=== PATIENT | female | born 1940 | race Caucasian/White ===

== ENCOUNTER 2017-08-11 08:50 | Outpatient (CLI) | payer MEDICARE, OTHER ==
[~2017-08-11 08:50] MED LIST: ALBU8.5H2 IH; AMLO5TAB2 PO; ASPI-991 PO; ATOR20TA PO; BLOO-129 IN; CARV6.252 PO; DIPH25TA27 PO; DOCU-25 PO; DOXY100C2 PO; FAMO20TA8 PO; FLUT16SP BNOSTRILS; GABA600T2 PO; GUAI480S10 PO; HYDR-3658 PO; HYPR15DR9 EACHEYE; INSU100I14 SQ; INSU100V7 SQ; LACT10SO PO; LISI30TA4 PO; LOPE2TAB25 PO; LORA10TA7 PO; LORA1TAB PO; MECL-102 PO; MELO-264 PO; MORP15TA71 PO; ONDA4TAB5 PO; PARO40TA3 PO; PRIM50TA PO; PROC5TAB59 PO; SENN8.6T6 PO; ZOLP10TA6 PO
== END 2017-08-11 23:59 | disposition home health service (06) ==
LOC: WOU 08:50
PROVIDERS: ATTEND Surgery
DX: L89.154 Pressure ulcer of sacral region, stage 4 (principal); R26.2 Difficulty in walking, not elsewhere classified; Z72.0 Tobacco use; D64.9 Anemia, unspecified; K21.9 Gastro-esophageal reflux disease without esophagitis; Z99.3 Dependence on wheelchair; Z79.899 Other long term (current) drug therapy; E11.9 Type 2 diabetes mellitus without complications
CPT/HCPCS: 11043; A6402; A6407

== ENCOUNTER 2017-08-28 10:00 | Outpatient (CLI) | payer MEDICARE, OTHER ==
[~2017-08-28 10:00] MED LIST changes: -ALBU8.5H2 IH; +ALBU8.5H8 IH; +ASPI-1152 PO; -ASPI-991 PO; +DOCU-141 PO; -DOCU-25 PO; +MELO-107 PO; -MELO-264 PO; +MORP15TA60 PO; -MORP15TA71 PO; -PARO40TA3 PO; +PARO40TA4 PO; +SENN-167 PO; -SENN8.6T6 PO
== END 2017-08-28 23:59 | disposition home health service (06) ==
LOC: WOU 10:00
PROVIDERS: ATTEND Surgery
DX: L89.154 Pressure ulcer of sacral region, stage 4 (principal); R26.2 Difficulty in walking, not elsewhere classified; Z72.0 Tobacco use; E10.9 Type 1 diabetes mellitus without complications
CPT/HCPCS: 11043; A6402; A6407

== ENCOUNTER 2017-09-15 11:55 | Outpatient (CLI) | payer MEDICARE, OTHER | END 2017-09-15 23:59 | disposition home health service (06) | LOC: WOU 11:55 | PROVIDERS: ATTEND Surgery | DX: L89.154 Pressure ulcer of sacral region, stage 4 (principal); Z72.0 Tobacco use; R26.2 Difficulty in walking, not elsewhere classified; K21.9 Gastro-esophageal reflux disease without esophagitis; F32.9 Major depressive disorder, single episode, unspecified; D64.9 Anemia, unspecified; Z99.3 Dependence on wheelchair; E11.9 Type 2 diabetes mellitus without complications | CPT/HCPCS: 11043; A6402; A6407 ==

== ENCOUNTER → 2017-09-22 | Outpatient (CLI) | payer MEDICARE, OTHER | END | disposition home health service (06) | LOC: WOU 12:00 | PROVIDERS: ATTEND Surgery | DX: L89.154 Pressure ulcer of sacral region, stage 4 (principal); R26.2 Difficulty in walking, not elsewhere classified; Z72.0 Tobacco use; Z99.3 Dependence on wheelchair; K21.9 Gastro-esophageal reflux disease without esophagitis; F32.9 Major depressive disorder, single episode, unspecified; D64.9 Anemia, unspecified | CPT/HCPCS: 11043; A6402; A6407 ==

== ENCOUNTER 2017-10-09 13:28 | Outpatient (CLI) | payer MEDICARE, OTHER ==
[~2017-10-09 13:28] MED LIST changes: -HYDR-3658 PO; +HYDR-3980 PO
== END 2017-10-09 23:59 | disposition home health service (06) ==
LOC: WOU 13:28
PROVIDERS: ATTEND Surgery
DX: L89.154 Pressure ulcer of sacral region, stage 4 (principal); R26.2 Difficulty in walking, not elsewhere classified; Z72.0 Tobacco use; Z99.3 Dependence on wheelchair; K21.9 Gastro-esophageal reflux disease without esophagitis; F32.9 Major depressive disorder, single episode, unspecified; D64.9 Anemia, unspecified; E10.8 Type 1 diabetes mellitus with unspecified complications
CPT/HCPCS: 11043; A6402; A6407

== ENCOUNTER 2017-10-20 10:19 | Outpatient (CLI) | payer MEDICARE, OTHER | END 2017-10-20 23:59 | disposition home or self-care (01) | LOC: WOU 10:19 | PROVIDERS: ATTEND Surgery | DX: L89.154 Pressure ulcer of sacral region, stage 4 (principal); R26.2 Difficulty in walking, not elsewhere classified; Z72.0 Tobacco use; E10.9 Type 1 diabetes mellitus without complications; D64.9 Anemia, unspecified; K21.9 Gastro-esophageal reflux disease without esophagitis | CPT/HCPCS: 11043; A6402; A6407 ==

== ENCOUNTER 2017-10-24 14:10 | Inpatient (IN) | payer MEDICARE, OTHER ==
[~2017-10-24] VITALS: Ht 165.1 cm; Wt 68.0 kg
--- NOTE | 2017-10-24 14:24 | NUR ---
PT BIB RA WITH A C/O FLU LIKE SYMPTOMS. PT APPEARS SLIGHTLY LETHARGIC. PT IS ASKING FOR WATER. PT'S MOUTH APPEARS DRY AND PT IS CURRENTLY MOUTH BREATHING. PT'S O2 SAT IS 77% ON RA. PT PLACED ON 4L VIA NC AND O2 SAT IS 92%. PT IS ON THE MONITOR AND CONTINUOUS PULSE OX. ORAL TEMP IS 99.1F. PT HAS RT BKA. PT TAKES PERCOCET FOR PAIN AND REC'D ONE THIS MORNING AT HER FACILITY ( PER EMS). PT HAS RUSSO TO GRAVITY VESSEL SLAG WORKER. RESP EVEN AND UNLABORED. SKIN IS WARM AND DRY. PT IS AWAITING EVAL BY
--- NOTE | 2017-10-24 14:28 | NUR ---
DR. LALA IS AT THE BEDSIDE.
--- NOTE | 2017-10-24 14:30 | NUR ---
20G IV STARTED IN LT WRIST. INDWELLING BOYD REMOVED PER DR LALA. NEW BOYD INSERTED AND URINE SAMPLE OBTAINED. 16FR boyd catheter inserted per sterile protocal. Immediate output 25ML of urine, YELLOW, clarity= CLOUDY
--- NOTE | 2017-10-24 14:50 | NUR ---
EKG IN PROGRESS AT THE BEDSIDE.
--- NOTE | 2017-10-24 14:53 | NUR ---
CXR IN PROGRESS AT THE BEDSIDE.
[2017-10-24 14:58] LABS: BASOPHILS % (AUTO) 0.3 % (0.0-2.0); EOSINOPHILS % (AUTO) 0.5 % (0.0-6.0); HEMATOCRIT 28 % (33-45); HEMOGLOBIN 9.4 g/dL (11.5-14.8); LYMPHOCYTES # (AUTO) 1.7 /CMM (0.8-4.8); LYMPHOCYTES % (AUTO) 20.4 % (20.0-44.0); MEAN CORPUSCULAR HEMOGLOBIN 30 PG (26.0-33.0); MEAN CORPUSCULAR HGB CONC 34 g/dl (31.0-36.0); MEAN CORPUSCULAR VOLUME 90 fL (82-100); MONOCYTES # (AUTO) 0.6 /CMM (0.1-1.30); MONOCYTES % (AUTO) 7.6 % (2.0-12.0); NEUTROPHILS # (AUTO) 5.8 /CMM (1.8-8.9); NEUTROPHILS % (AUTO) 71.2 % (43.0-81.0); PLATELET COUNT (AUTO) 196 /CMM (150-450); RDW COEFFICIENT OF VARIATION 14.2 (11.5-15.0); RED BLOOD CELL COUNT(AUTO) 3.09 MIL/uL (4.0-5.2); WHITE BLOOD COUNT (AUTO) 8.1 K/uL (4.3-11.0)
[2017-10-24 15:00] LABS: APPEARANCE,URINE Turbid (CLEAR); BILIRUBIN,URINE Negative (NEGATIVE); BLOOD, URINE Trace-intact Ery/uL (NEGATIVE); COLOR,URINE Yellow (YELLOW); KETONES,URINE Negative (NEGATIVE); LEUKOCYTE ESTERASE ,URINE Moderate (NEGATIVE); NITRITE, URINE Positive (NEGATIVE); PROTEIN,URINE >=300 mg/dl (NEGATIVE); UGLUCOSE Negative (NEGATIVE); UROBILINOGEN,URINE 0.2 EU/dL (0.2)
[2017-10-24] MEDS ORDERED: IV NS 0.9% 1,000 ML BAG IV ONE (15:00)
[2017-10-24 15:08] LABS: CALCIUM, SERUM 8.8 mg/dL (8.5-10.1); CARBON DIOXIDE 25 mmol/L (21-32); CHLORIDE 110 mmol/L (98-107); CREATININE 1.5 mg/dL (0.6-1.3); GLUCOSE 109 mg/dL (74-106); POTASSIUM 5.5 mmol/L (3.5-5.1); SODIUM SERUM 141 mmol/L (136-145); UREA NITROGEN, BLOOD 33 mg/dL (7-18)
[2017-10-24 15:09] LABS: BACTERIA,URINE Few /HPF (None Seen); SQUAMOUS EPITHELIAL CELL,UR Few /HPF (None Seen); WBC,URINE 80-100 /HPF (0-3)
[2017-10-24 15:12] LABS: INR 0.92 (0.85-1.15)
[2017-10-24 15:14] LABS: ALANINE AMINOTRANSFERASE 12 U/L (12-78); ALBUMIN 2.7 g/dL (3.4-5.0); ALKALINE PHOSPHATASE 86 U/L (46-116); ASPARTATE AMINOTRANSFERASE 14 U/L (15-37); BILIRUBIN,DIRECT 0.1 mg/dL (0.0-0.2); BILIRUBIN,TOTAL 0.2 mg/dL (0.2-1.0); TOTAL PROTEIN, SERUM 6.6 g/dL (6.4-8.2)
[2017-10-24 15:16] LABS: TROPONIN I < 0.017 ng/mL (0.00-0.056)
--- NOTE | 2017-10-24 15:20 | NUR ---
PT LEFT FOR CT VIA RNEY
--- NOTE | 2017-10-24 15:50 | NUR ---
PT RETURNED FROM CT.
--- NOTE | 2017-10-24 15:58 | NUR ---
SPEAKING TO PT'S SON RE: PT. PER SON, PT HAS BEEN OVER MEDICATED IN THE PAST AND HAS UTI. DHARA MORENO [phone]. PLEASE CALL WITH UPDATES.
[2017-10-24] MEDS ORDERED: PIPERACILLIN /TAZOBACTAM 2.25 G in IV D5W 50 ML IV ONE (16:00)
--- NOTE | 2017-10-24 16:18 | NUR ---
CALLED [employer] B AND B GANG WORKER WAS PAGED.
[2017-10-24] MEDS ORDERED: SODIUM POLYSTYRENE SULFONATE 15 G/60 ML BOTTLE PO ONE (16:30)
[2017-10-24 16:32] LABS: ABG BASE EXCESS -6.3 mmol/L; ABG OXYGEN SATURATION 95.3 % (92.0-98.5); ABG PCO2 47.7 mmHg (35.0-45.0); ABG PH 7.253 (7.350-7.450); ABG PO2 95.9 mmHg (75.0-100.0); AaDO2 105.5 mmHg; MetHb 0.8 % (0.0-1.5); O2Hb 93.6 % (94.0-97.0); SITE, ABG Left Radial; VENT MODE, BG 4 LNC
--- NOTE | 2017-10-24 17:18 | NUR ---
DR. LESTER IS AT THE BEDSIDE EVALUATING THE PT.
[2017-10-24] MEDS ORDERED: LACT10SO PO (17:19)
[2017-10-24] MEDS ORDERED: NA P133E RC (17:19)
[2017-10-24] MEDS ORDERED: BISA10SU8 RC (17:19)
[2017-10-24] MEDS ORDERED: HYDR-4075 PO (17:19)
[2017-10-24] MEDS ORDERED: FOLI0.8T2 PO (17:19)
[2017-10-24] MEDS ORDERED: DULO60CA45 PO (17:19)
[2017-10-24] MEDS ORDERED: OXYC-128 PO (17:19)
[2017-10-24] MEDS ORDERED: ACET-868 PO (17:19)
[2017-10-24] MEDS ORDERED: MAGN400O6 PO (17:19)
[2017-10-24] MEDS ORDERED: AMIN30LI4 PO (17:19)
[2017-10-24] MEDS ORDERED: CLON0.3P TD (17:19)
[2017-10-24] MEDS ORDERED: DOCU250C14 PO (17:19)
[2017-10-24] MEDS ORDERED: OXYC-133 PO ×2 (17:19)
[2017-10-24] MEDS ORDERED: PREG300C PO (17:19)
[2017-10-24] MEDS ORDERED: METF500T4 PO (17:25)
[2017-10-24] MEDS ORDERED: ASCO500T9 PO (17:25)
[2017-10-24] MEDS ORDERED: LISI-603 PO (17:25)
[2017-10-24] MEDS ORDERED: SITA100T PO (17:25)
[2017-10-24] MEDS ORDERED: TERA2CAP4 PO (17:25)
[2017-10-24] MEDS ORDERED: CHLO25TA2 PO (17:25)
[2017-10-24] MEDS ORDERED: IV NS 0.9% 1,000 ML IV PRN ×2 (17:27→23:02)
[2017-10-24] MEDS ORDERED: ACETAMINOPHEN 325 MG TABLET PO PRN (17:30)
[2017-10-24] MEDS ORDERED: ENOXAPARIN SODIUM 40 MG/0.4 ML DISP.SYRIN SQ SCH (17:30)
[2017-10-24] MEDS ORDERED: MAGNESIUM HYDROXIDE 30 ML UDC PO PRN (17:30)
[2017-10-24] MEDS ORDERED: HYDROCODONE/APAP 5/325MG 1 EACH TABLET PO PRN (17:30)
[2017-10-24] MEDS ORDERED: MAG HYDROX/AL HYDROX/SIMETH 30 ML UDC PO PRN (17:30)
[2017-10-24] MEDS ORDERED: Z GUARD REMEDY 2 OZ OINT TP PRN (17:30)
--- NOTE | 2017-10-24 17:37 | NUR ---
Abby medeiros in ED - 10/24/17 at 1738 by TRINI PT WAKES UP AND DOESN'T WANT TO DRINK THE KEYEXELATE. CHARGE NURSE IS AWARE THAT WE WERE UNABLE TO GIVE THE PT THE MEDICATION.
--- NOTE | 2017-10-24 17:38 | NUR ---
PT WAKES UP AND DOESN'T WANT TO DRINK THE KEYEXELATE. CHARGE NURSE IS AWARE THAT WE WERE UNABLE TO GIVE THE PT THE MEDICATION.
--- NOTE | 2017-10-24 17:38 | NUR ---
CALLING REPORT TO TELE NURSE.
[2017-10-24] MEDS ORDERED: PIPERACILLIN /TAZOBACTAM 4.5 G in IV D5W 50 ML IV SCH (18:00)
--- NOTE | 2017-10-24 18:10 | NUR ---
PT APPEARS TO BE MORE ALERT. PT IS INTERMITTENTLY COUGHING. GREEN SPUTUM NOTED. PT WANTED TO TRY TO DRINK THE KAYEXELATE, BUT WAS ONLY ABLE TO DRINK APPROX 30 ML. HAD TO WASTE THE REST.
--- NOTE | 2017-10-24 19:00 | NUR ---
RN NOTES RECEIVE PT IN BED A/O X1, PT ON 5L NC 02 SAT 97% NO S/S OF DISTRESS, STABLE, SAFETY MEASURES IN PLACE, CALL LIGHT WITHIN REACH, WILL CONTINUE TO MONITOR.
--- NOTE | 2017-10-24 19:10 | NUR ---
DECREASE 02 TO 3LPM SP02 95%
[2017-10-24 20:00] VITALS: BP 143/49
[2017-10-24] MEDS: ENOXAPARIN SODIUM 30 MG/0.3 ML DISP.SYRIN SQ SCH (20:21)
--- NOTE | 2017-10-24 22:00 | NUR ---
HEAD TO TOE ASSESSMENT IS DONE
--- NOTE | 2017-10-24 23:03 | NUR ---
CARINA PAZ NP HOSPITALIST SPOKE TO HER RELAYED FAMILY MEMBER CONCERNED WITH IVF NS @ 75 CC/HR. HX OF CHF PT TO BE MORE ALERT DRINKING A LITTLE BUT DOESNT HAVE APPETITE TO EAT PER JACKSON PEARCE NP, DECREASE IVF NS TO 50 CC/HR NOTED VERIFIED AND READ BACK NOTED AND CARRIED OUT Addendum: 10/25/17 at 0631 by SEMAJ BLANKENSHIP RN ADDENDUM: DRINKING LITTLE EARLIER IN THE E.R SERVICES
[2017-10-24] MEDS: PIPERACILLIN /TAZOBACTAM 2.25 G in IV D5W 50 ML IV SCH (23:40)
[2017-10-25] VITALS: BP 155/69
[2017-10-25] MEDS ORDERED: PIPERACILLIN /TAZOBACTAM 3.375 G in IV D5W 50 ML IV SCH ×2
[2017-10-25 04:00] VITALS: BP 145/69
[2017-10-25] MEDS: PIPERACILLIN /TAZOBACTAM 2.25 G in IV D5W 50 ML IV SCH ×3 (05:27→18:06)
--- NOTE | 2017-10-25 06:33 | NUR ---
MS RN CLOSING NOTES PT COMFORTABLY ASLEEP IN BED AND EASILY AWAKEN, NOT IN RESPIRATORY DISTRESS, ON 2LPM VIA NC 02 SAT 97% SON AT BEDSIDE, HEAD OF BED ELEVATED AT ALL TIMES FOR BETTER LUNG EXPANSION AND GOOD CIRCULATION. STABLE, NOT APPEAR IN DISTRESS. NEEDS ATTENDED AND ANTICIPATED. KEPT CLEAN AND DRY AND COMFORTABLE. NURSING CARE RENDERED. ASSISTED REPOSITION EVERY 2 HOURS. GOOD SKIN CARE PROVIDED. ON LOW BED TO ENSURE SAFETY, CALL LIGHT WITHIN REACH, WILL ENDORSE TO THE NEXT SHIFT CONTINUE PLAN OF CARE.
--- NOTE | 2017-10-25 06:53 | NUR ---
ON TELE MTR SR 71'S
--- NOTE | 2017-10-25 07:10 | NUR ---
RN NOTES PT IS LAYING DOWN IN BED, SLEEPING COMFORTABLY WITH SON AT BEDSIDE. PT ON RA, RESPIRATIONS ARE EVEN AND UNLABORED. IV ON LFA INTACT AND RUNNING 50ML/HR. SAFETY MEASURES ARE IN PLACE, CALL LIGHT IS IN REACH. WILL CONTINUE TO MONITOR.
--- NOTE | 2017-10-25 07:20 | NUR ---
RN NOTES PT IS SITTING UP IN BED, RESTING COMFORTABLY. PT ON RA, RESPIRATIONS ARE EVEN AND UNLABORED. IV ON RFA, LAC, AND R WRIST INTACT. IV RUNNING NS @ 125ML/HR. RUSSO CATHETER IS INTACT AND DRAINING. SAFETY MEASURES ARE IN PLACE, CALL LIGHT IS IN REACH. WILL CONTINUE TO MONITOR. Addendum: 10/25/17 at 1842 by CAMILO GILES RN DISREGARD NOTE. WRONG PATIENT
[2017-10-25 07:32] LABS: BASOPHILS % (AUTO) 0.3 % (0.0-2.0); EOSINOPHILS # (AUTO) 0.1 /CMM (0.0-0.7); EOSINOPHILS % (AUTO) 1.7 % (0.0-6.0); HEMATOCRIT 25 % (33-45); HEMOGLOBIN 8.5 g/dL (11.5-14.8); LYMPHOCYTES # (AUTO) 1.6 /CMM (0.8-4.8); LYMPHOCYTES % (AUTO) 22.7 % (20.0-44.0); MEAN CORPUSCULAR HEMOGLOBIN 31 PG (26.0-33.0); MEAN CORPUSCULAR HGB CONC 34 g/dl (31.0-36.0); MEAN CORPUSCULAR VOLUME 91 fL (82-100); MONOCYTES # (AUTO) 0.6 /CMM (0.1-1.30); MONOCYTES % (AUTO) 8.7 % (2.0-12.0); NEUTROPHILS # (AUTO) 4.7 /CMM (1.8-8.9); NEUTROPHILS % (AUTO) 66.6 % (43.0-81.0); PLATELET COUNT (AUTO) 158 /CMM (150-450); RDW COEFFICIENT OF VARIATION 14.9 (11.5-15.0); RED BLOOD CELL COUNT(AUTO) 2.75 MIL/uL (4.0-5.2); WHITE BLOOD COUNT (AUTO) 7.1 K/uL (4.3-11.0)
[2017-10-25 07:41] LABS: CHOLESTEROL 102 mg/dL (<200); HDL CHOLESTEROL 31 mg/dL (40-60); LDL 50 mg/dL (0-99); THYROID STIMULATING HORMONE 0.331 uIU/mL (0.358-3.74); TRIGLYCERIDES 139 mg/dL (30-150)
[2017-10-25 07:54] LABS: ALANINE AMINOTRANSFERASE 10 U/L (12-78); ALBUMIN 2.2 g/dL (3.4-5.0); ALKALINE PHOSPHATASE 66 U/L (46-116); ASPARTATE AMINOTRANSFERASE 14 U/L (15-37); BILIRUBIN,TOTAL 0.3 mg/dL (0.2-1.0); CALCIUM, SERUM 7.8 mg/dL (8.5-10.1); CARBON DIOXIDE 20 mmol/L (21-32); CHLORIDE 113 mmol/L (98-107); CREATININE 1.2 mg/dL (0.6-1.3); GLUCOSE 89 mg/dL (74-106); MAGNESIUM 1.5 mg/dL (1.8-2.4); POTASSIUM 4.8 mmol/L (3.5-5.1); SODIUM SERUM 148 mmol/L (136-145); TOTAL PROTEIN, SERUM 6.1 g/dL (6.4-8.2); UREA NITROGEN, BLOOD 28 mg/dL (7-18)
[2017-10-25 08:00] VITALS: BP 172/67
[2017-10-25] MEDS ORDERED: MAGNESIUM HYDROXIDE 30 ML UDC PO PRN (08:30)
[2017-10-25] MEDS ORDERED: BISACODYL SUPP (10 MG) 10 MG/SUPP.RECT SUPP.RECT RC PRN (08:30)
[2017-10-25] MEDS ORDERED: ACETAMINOPHEN 325 MG TABLET PO PRN (08:30)
[2017-10-25] MEDS ORDERED: NA PHOS,M-B/NA PHOS,DI-BA 1 EA ENEMA RC PRN (08:30)
[2017-10-25] MEDS ORDERED: Medication Not On Formulary EA (Sitagliptin Phosphate (Januvia) 100 MG) PO SCH (09:00)
[2017-10-25] MEDS ORDERED: AMLODIPINE BESYLATE 5 MG TABLET PO SCH (09:00)
[2017-10-25] MEDS: FUROSEMIDE 40 MG/4 ML VIAL IV SCH ×3 (09:12→16:04)
[2017-10-25] MEDS: Magnesium 1GM/D5W 100ML PREMIX 100 ML IV SCH ×2 (09:12→10:36)
[2017-10-25] MEDS: PROSOURCE / PROSTAT (PYXIS) 30 ML UDC PO SCH (09:12)
[2017-10-25] MEDS: LISINOPRIL (20MG) 20 MG TABLET PO SCH ×2 (09:13→16:04)
[2017-10-25] MEDS: DULOXETINE HCL 30 MG CAPSULE.DR PO SCH (09:13)
[2017-10-25] MEDS: DOCUSATE SODIUM 250 MG CAPSULE PO SCH ×2 (09:13→16:04)
[2017-10-25] MEDS: CARVEDILOL 6.25 MG TABLET PO SCH ×2 (09:13→16:05)
[2017-10-25] MEDS: VIT B CMPLX 3/FA/VIT C/BIOTIN 1 TAB TABLET PO SCH (09:14)
[2017-10-25] MEDS: SENNOSIDES 8.6 MG TABLET PO SCH ×2 (09:14→16:04)
[2017-10-25] MEDS: hydrALAZINE HCL 10 MG TABLET PO SCH ×2 (09:14→16:05)
[2017-10-25] MEDS: ASCORBIC ACID 500 MG TABLET PO SCH (09:14)
[2017-10-25] MEDS: METFORMIN 500 MG TABLET PO SCH ×2 (09:15→16:04)
[2017-10-25] MEDS ORDERED: ONDANSETRON 4 MG TAB.RAPDIS PO PRN (09:30)
[2017-10-25] MEDS ORDERED: LACTULOSE 10 G/15 ML UDC (PYXIS) PO PRN (09:30)
[2017-10-25] MEDS: CHLORTHALIDONE 25 MG PO SCH (09:30)
[2017-10-25] MEDS: PREGABALIN 100 MG CAPSULE PO SCH ×2 (09:32→16:04)
[2017-10-25 16:00] VITALS: BP 168/75
--- NOTE | 2017-10-25 18:42 | NUR ---
RN NOTES PT IS SITTING UP IN BED, RESTING COMFORTABLY. PT ON RA, RESPIRATIONS ARE EVEN AND UNLABORED. IV ON LFA INTACT AND RUNNING NS @ 50ML/HR. ALL MEDS GIVEN ORDERED AND PT NEEDS MET. NO SIGNS OF DISTRESS NOTED. SAFETY MEASURES ARE IN PLACE, CALL LIGHT IS IN REACH. WILL ENDORSE TO TAXATION ECONOMIST RN FOR CONTINUITY OF CARE.
--- NOTE | 2017-10-25 19:16 | NUR ---
RN NOTES RECEIVE PT IN BED A/O X 2, NO S/S OF DISTRESS, STABLE, SAFETY MEASURES IN PLACE, CALL LIGHT WITHIN REACH, WILL CONTINUE TO MONITOR.
[2017-10-25 20:00] VITALS: BP 145/67
[2017-10-25] MEDS: TERAZOSIN HCL 1 MG CAPSULE PO SCH (21:54)
[2017-10-25] MEDS: ATORVASTATIN 10 MG TABLET PO SCH (21:54)
[2017-10-25] MEDS: ENOXAPARIN SODIUM 30 MG/0.3 ML DISP.SYRIN SQ SCH (21:56)
[2017-10-25] MEDS ORDERED: ZOLPIDEM TARTRATE 10 MG TABLET PO SCH (22:00)
[2017-10-26] VITALS (7 sets, daily range): BP systolic 139–170; BP diastolic 62–75
[2017-10-26] MEDS: PIPERACILLIN /TAZOBACTAM 2.25 G in IV D5W 50 ML IV SCH ×4 (00:09→17:02)
[2017-10-26] MEDS: oxyCODONE/APAP (5/325 MG) 1 UDTAB TABLET PO PRN ×2 (03:24→20:10)
--- NOTE | 2017-10-26 06:24 | NUR ---
MS RN CLOSING NOTES PT ASLEEP IN BED AND EASILY AWAKEN, PT APPEARS ALERT A/O X 3, HEAD OF BED ELEVATED AT ALL TIMES FOR BETTER LUNG EXPANSION AND GOOD CIRCULATION. NOT IN RESPIRATORY DISTRESS, ON 2LPM VIA NC 02 SAT AT 95% STABLE, NURSING CARE RENDERED. NEEDS ATTENDED AND ANTICIPATED. KEPT CLEAN AND DRY AND COMFORTABLE. NO C/O OF PAIN. ASSISTED REPOSITION PT EVERY 2 HOURS FOR SKIN MANAGEMENT. GOOD SKIN CARE PROVIDED. ON LOW BED TO ENSURE SAFETY, CALL LIGHT WITHIN REACH, WILL ENDORSE TO THE NEXT SHIFT CONTINUE PLAN OF CARE.
[2017-10-26 07:20] LABS: BASOPHILS % (AUTO) 0.5 % (0.0-2.0); EOSINOPHILS # (AUTO) 0.1 /CMM (0.0-0.7); HEMATOCRIT 24 % (33-45); HEMOGLOBIN 8.4 g/dL (11.5-14.8); LYMPHOCYTES # (AUTO) 1.9 /CMM (0.8-4.8); LYMPHOCYTES % (AUTO) 27.9 % (20.0-44.0); MEAN CORPUSCULAR HEMOGLOBIN 31 PG (26.0-33.0); MEAN CORPUSCULAR HGB CONC 34 g/dl (31.0-36.0); MEAN CORPUSCULAR VOLUME 90 fL (82-100); MONOCYTES # (AUTO) 0.8 /CMM (0.1-1.30); MONOCYTES % (AUTO) 11.1 % (2.0-12.0); NEUTROPHILS % (AUTO) 58.5 % (43.0-81.0); PLATELET COUNT (AUTO) 164 /CMM (150-450); RDW COEFFICIENT OF VARIATION 14.6 (11.5-15.0); WHITE BLOOD COUNT (AUTO) 6.8 K/uL (4.3-11.0)
--- NOTE | 2017-10-26 07:20 | NUR ---
RN NOTES PT IS LAYING DOWN IN BED, SLEEPING COMFORTABLY. PT ON 2L O2 FOR COMFORT, RESPIRATIONS ARE EVEN AND UNLABORED. IV ON LFA INTACT AND SL. RUSSO CATHETER IS INTACT AND DRAINING. SAFETY MEASURES ARE IN PLACE, CALL LIGHT IS IN REACH. WILL CONTINUE TO MONITOR.
[2017-10-26 07:25] LABS: ALANINE AMINOTRANSFERASE 14 U/L (12-78); ALBUMIN 2.4 g/dL (3.4-5.0); ALKALINE PHOSPHATASE 68 U/L (46-116); ASPARTATE AMINOTRANSFERASE 15 U/L (15-37); BILIRUBIN,TOTAL 0.4 mg/dL (0.2-1.0); CALCIUM, SERUM 8.4 mg/dL (8.5-10.1); CARBON DIOXIDE 23 mmol/L (21-32); CHLORIDE 107 mmol/L (98-107); CREATININE 1.1 mg/dL (0.6-1.3); GLUCOSE 132 mg/dL (74-106); MAGNESIUM 1.6 mg/dL (1.8-2.4); PHOSPHORUS 3.1 mg/dL (2.5-4.9); POTASSIUM 3.7 mmol/L (3.5-5.1); SODIUM SERUM 141 mmol/L (136-145); TOTAL PROTEIN, SERUM 6.4 g/dL (6.4-8.2); UREA NITROGEN, BLOOD 24 mg/dL (7-18)
[2017-10-26] MEDS: ASCORBIC ACID 500 MG TABLET PO SCH (08:15)
[2017-10-26] MEDS: DULOXETINE HCL 30 MG CAPSULE.DR PO SCH (08:15)
[2017-10-26] MEDS: METFORMIN 500 MG TABLET PO SCH ×2 (08:15→16:36)
[2017-10-26] MEDS: PREGABALIN 100 MG CAPSULE PO SCH ×2 (08:15→16:35)
[2017-10-26] MEDS: LINAGLIPTIN 5 MG TABLET PO SCH (08:15)
[2017-10-26] MEDS: CARVEDILOL 6.25 MG TABLET PO SCH ×2 (08:15→16:35)
[2017-10-26] MEDS: DOCUSATE SODIUM 250 MG CAPSULE PO SCH ×2 (08:15→16:35)
[2017-10-26] MEDS: hydrALAZINE HCL 10 MG TABLET PO SCH ×2 (08:15→16:35)
[2017-10-26] MEDS: VIT B CMPLX 3/FA/VIT C/BIOTIN 1 TAB TABLET PO SCH (08:16)
[2017-10-26] MEDS: LISINOPRIL (20MG) 20 MG TABLET PO SCH ×2 (08:16→16:35)
[2017-10-26] MEDS: PROSOURCE / PROSTAT (PYXIS) 30 ML UDC PO SCH (08:16)
[2017-10-26] MEDS: AMLODIPINE BESYLATE 5 MG TABLET PO SCH (08:16)
[2017-10-26] MEDS: CHLORTHALIDONE 25 MG PO SCH (08:16)
[2017-10-26] MEDS: SENNOSIDES 8.6 MG TABLET PO SCH ×2 (08:23→16:36)
[2017-10-26] MEDS: Magnesium 1GM/D5W 100ML PREMIX 100 ML IV SCH ×2 (08:25→09:21)
[2017-10-26] MEDS ORDERED: CLONIDINE HCL 0.3 MG/24H PTWK 1 EA PATCH TD SCH (09:00)
[2017-10-26] MEDS ORDERED: SILVER NITRATE APPLICATOR 1 EA BOX TP ONE (12:00)
[2017-10-26] MEDS ORDERED: LIDOCAINE 1%-EPI 1:100,000 20 ML VIAL TP ONE (12:00)
--- NOTE | 2017-10-26 13:00 | NUR ---
RN NOTES CT OF PELVIS UNABLE TO BE DONE TODAY BECAUSE PT TAKES GLUCOPHAGE. WILL ENDORSE TO NEXT SHIFT TO HOLD METFORMIN AND TRADJENTA FOR 48 HOURS.
[2017-10-26 13:15] LABS: OCCULT BLOOD STOOL NEGATIVE (NEGATIVE)
[2017-10-26] MEDS: SOD FERRIC GLUC 125 MG in IV NS 0.9% 100 ML IV SCH (14:01)
[2017-10-26] MEDS ORDERED: POLYVINYL ALCOHOL 15 ML BOTTLE EACHEYE PRN (17:00)
--- NOTE | 2017-10-26 18:34 | NUR ---
RN NOTES PT IS RESTING IN BED WITH HOB ELEVATED, AWAKE AND ALERT. PT ON RA, RESPIRATIONS ARE EVEN AND UNLABORED. IV ON LFA INTACT AND PATENT. ALL MEDS WERE GIVEN ORDERED AND PT NEEDS MET. RUSSO CATHETER IS INTACT AND DRAINING, 900 ML OUTPUT. SAFETY MEASURES ARE IN PLACE, CALL LIGHT IS IN REACH. WILL ENDORSE TO CORRECTIONAL CASE RECORDS SUPERVISOR RN FOR CONTINUITY OF CARE.
--- NOTE | 2017-10-26 19:30 | NUR ---
RN NOTES PT IS RESTING IN BED WITH HOB ELEVATED, AWAKE AND ALERT. PT ON RA, RESPIRATIONS ARE EVEN AND UNLABORED. IV ON LFA INTACT AND PATENT. ALL MEDS WERE GIVEN ORDERED AND PT NEEDS MET. RUSSO CATHETER IS INTACT AND DRAINING, SAFETY MEASURES ARE IN PLACE, CALL LIGHT IS IN REACH. WILL CONTINUE TO MONITOR.
[2017-10-26] MEDS: ENOXAPARIN SODIUM 30 MG/0.3 ML DISP.SYRIN SQ SCH (20:11)
[2017-10-26] MEDS: ATORVASTATIN 10 MG TABLET PO SCH (21:30)
[2017-10-26] MEDS: TERAZOSIN HCL 1 MG CAPSULE PO SCH (21:31)
[2017-10-26] MEDS: ZOLPIDEM TARTRATE 5 MG TABLET PO PRN (21:34)
[2017-10-27] MEDS ORDERED: hydrALAZINE HCL IV 20 MG VIAL IV PRN (00:30)
[2017-10-27] MEDS: PIPERACILLIN /TAZOBACTAM 2.25 G in IV D5W 50 ML IV SCH ×4 (00:42→18:49)
--- NOTE | 2017-10-27 06:58 | NUR ---
ms rn note All needs met and attended to. Will endorse to day shift for gianluca.
--- NOTE | 2017-10-27 07:15 | NUR ---
MS RN OPENING NOTE. PT RECEIVED A&0X2-3. PT WITH O2 VIA NC AT 2LPM, DENIES SOB. PT REPORTS MODERATE CHRONIC PAIN TO R KNEE AND ANKLE. PT WITH L FA IVC G#20 INTACT AND OPERATIONAL WITH NS TKO. BED IN LOWEST LOCKED POSITION WITH HANDRAILSX3 AND CALL CARTER WITHIN REACH. PT BRIEFED ON TODAY'S POC AND IS WITHOUT CONCERN OR COMPLAINT AT THIS TIME.
[2017-10-27 08:00] VITALS: BP 116/62
[2017-10-27] MEDS: DOCUSATE SODIUM 250 MG CAPSULE PO SCH ×2 (09:00→17:00)
[2017-10-27] MEDS: SENNOSIDES 8.6 MG TABLET PO SCH ×2 (09:00→17:00)
[2017-10-27] MEDS: CHLORTHALIDONE 25 MG PO SCH (09:00)
[2017-10-27] MEDS: LINAGLIPTIN 5 MG TABLET PO SCH (09:29)
[2017-10-27] MEDS: PREGABALIN 100 MG CAPSULE PO SCH ×2 (09:29→17:07)
[2017-10-27] MEDS: VIT B CMPLX 3/FA/VIT C/BIOTIN 1 TAB TABLET PO SCH (09:29)
[2017-10-27] MEDS: AMLODIPINE BESYLATE 5 MG TABLET PO SCH (09:29)
[2017-10-27] MEDS: METFORMIN 500 MG TABLET PO SCH ×2 (09:29→17:07)
[2017-10-27] MEDS: DULOXETINE HCL 30 MG CAPSULE.DR PO SCH (09:30)
[2017-10-27] MEDS: CARVEDILOL 6.25 MG TABLET PO SCH ×2 (09:30→17:08)
[2017-10-27] MEDS: hydrALAZINE HCL 10 MG TABLET PO SCH ×2 (09:30→17:00)
[2017-10-27] MEDS: ASCORBIC ACID 500 MG TABLET PO SCH (09:31)
[2017-10-27] MEDS: LISINOPRIL (20MG) 20 MG TABLET PO SCH ×2 (09:31→17:07)
[2017-10-27] MEDS: PROSOURCE / PROSTAT (PYXIS) 30 ML UDC PO SCH (09:32)
[2017-10-27] MEDS ORDERED: FUROSEMIDE 40 MG/4 ML VIAL IV ONE (11:00)
[2017-10-27] MEDS ORDERED: Magnesium 1GM/D5W 100ML PREMIX 1 G in PREMIX 1 EA IV SCH (11:00)
--- NOTE | 2017-10-27 11:55 | NUR ---
WOUND CARE CONSULT: PT FOLLOWED BY PLASTIC SURGICAL TEAM FOR WOUND/SKIN ISSUES. DEFER TO SURGICAL TEAM FOR WOUND TREATMENT PLAN. PT ON FIRST STEP MATTRESS. ALL SKIN PROTECTION MEASURES IN PLACE AND DISCUSSED WITH NURSING STAFF. MD IN AGREEMENT WITH PLAN OF CARE.
[2017-10-27] MEDS: Magnesium 1GM/D5W 100ML PREMIX 100 ML IV SCH ×2 (12:40→17:06)
[2017-10-27] MEDS: ONDANSETRON HCL/PF 4 MG/2 ML VIAL IVP PRN (12:41)
[2017-10-27] MEDS: oxyCODONE/APAP (5/325 MG) 1 UDTAB TABLET PO PRN ×2 (13:13→20:35)
[2017-10-27] MEDS: SOD FERRIC GLUC 125 MG in IV NS 0.9% 100 ML IV SCH (14:54)
[2017-10-27 16:00] VITALS: BP 137/51
--- NOTE | 2017-10-27 19:30 | NUR ---
RN CLOSING NOTES PT COMFORTABLE, TOLERATING ROOM AIR WITH INTERMITTENT O2 VIA NC, PT DENIES PAIN. RUSSO AND IVC ARE INTACT AND OPERATIONAL. ALL DAY NURSE DUTIES ATTENDED TO AND PT IS WITHOUT CONCERN OR COMPLAINT.
--- NOTE | 2017-10-27 19:35 | NUR ---
MS RN OPENING NOTES RECEIVED PT IN BED ALERT, AWAKE, VERBALLY RESPONSIVE, ON O2 VIA N/C AT 2L/MIN, NO RESPIRATORY DISTRESS NOTED. DENIES ANY PAIN OR DISCOMFORT AT THIS TIME. IV SITE RFA, INTACT, PATENT. CALL LIGHT WITHIN REACH, BED LOCKED IN LOWEST POSITION.KEPT CLEAN AND COMFORTABLE, ATTENDED ALL NEEDS. WILL CONTINUE TO MONITOR ACCORDINGLY.
[2017-10-27 20:00] VITALS: BP 135/50
[2017-10-27 20:30] VITALS: BP 109/77
[2017-10-27] MEDS: ENOXAPARIN SODIUM 30 MG/0.3 ML DISP.SYRIN SQ SCH (20:38)
[2017-10-27] MEDS: ATORVASTATIN 10 MG TABLET PO SCH (21:35)
[2017-10-27] MEDS: TERAZOSIN HCL 1 MG CAPSULE PO SCH (21:35)
[2017-10-27 22:00] VITALS: BP 126/60
[2017-10-28] MEDS: PIPERACILLIN /TAZOBACTAM 2.25 G in IV D5W 50 ML IV SCH ×5 (00:01→23:55)
--- NOTE | 2017-10-28 06:33 | NUR ---
MS RN CLOSING NOTES PT IN BED RESTING COMFORTABLY, ON ROOM AIR, RESPIRATIONS EVEN, UNLABORED, NO APPARENT DISTRESS NOTED. IV SITE RFA INTACT, PATENT.CALL LIGHT WITHIN REACH. ATTENDED ALL NEEDS. BED LOCKED IN LOWEST POSITION. WILL CONTINUE TO MONITOR ACCORDINGLY.
--- NOTE | 2017-10-28 07:11 | NUR ---
MS RN OPENING NOTES RECEIVED PT FROM NIGHTSHIFT NURSE IN STABLE CONDITION. PT IS A/O X2. NO SOB OR SIGNS OF DISTRESS NOTED. BREATHING IS EVEN AND UNLABORED. PT IS SATING AT 90%, BUT IS REFUSING SUPPLEMENTAL O2. PER PT "LEAVE ME ALONE JUST LET ME SLEEP, I'M FINE." WILL CONTINUE TO ENCOURAGE SUPPLEMENTAL O2. IV NOTED TO BE PATENT AND INTACT. NO REDNESS OR SIGNS OF INFILTRATION NOTED. BED IN LOW LOCKED POSITION, SIDE RAILS UP X3, CALL LIGHT WITHIN REACH, BED ALARM ON. WILL CONTINUE TO MONITOR
[2017-10-28 08:00] VITALS: BP 130/54
[2017-10-28] MEDS: LISINOPRIL (20MG) 20 MG TABLET PO SCH ×2 (09:00→17:25)
[2017-10-28] MEDS: hydrALAZINE HCL 10 MG TABLET PO SCH ×2 (09:00→17:26)
[2017-10-28] MEDS: CHLORTHALIDONE 25 MG PO SCH (09:00)
[2017-10-28] MEDS: PREGABALIN 100 MG CAPSULE PO SCH ×2 (09:02→17:25)
[2017-10-28] MEDS: METFORMIN 500 MG TABLET PO SCH ×2 (09:02→17:25)
[2017-10-28] MEDS: DOCUSATE SODIUM 250 MG CAPSULE PO SCH ×2 (09:02→17:25)
[2017-10-28] MEDS: VIT B CMPLX 3/FA/VIT C/BIOTIN 1 TAB TABLET PO SCH (09:03)
[2017-10-28] MEDS: SENNOSIDES 8.6 MG TABLET PO SCH ×2 (09:03→17:25)
[2017-10-28] MEDS: CARVEDILOL 6.25 MG TABLET PO SCH ×2 (09:03→17:25)
[2017-10-28] MEDS: DULOXETINE HCL 30 MG CAPSULE.DR PO SCH (09:03)
[2017-10-28] MEDS: ASCORBIC ACID 500 MG TABLET PO SCH (09:03)
[2017-10-28] MEDS: PROSOURCE / PROSTAT (PYXIS) 30 ML UDC PO SCH (09:03)
[2017-10-28] MEDS: LINAGLIPTIN 5 MG TABLET PO SCH (09:03)
[2017-10-28] MEDS: AMLODIPINE BESYLATE 5 MG TABLET PO SCH (09:03)
--- NOTE | 2017-10-28 13:54 | NUR ---
MS RN NOTES PER DR. LESTER "LEAVE PT'S CATHETER IN TO PROTECT HER WOUND AND BEING THAT SHE WILL HAVE SURGICAL DEBRIDEMENT ON FRIDAY".
[2017-10-28] MEDS: SOD FERRIC GLUC 125 MG in IV NS 0.9% 100 ML IV SCH (15:14)
[2017-10-28] MEDS: oxyCODONE/APAP (5/325 MG) 1 UDTAB TABLET PO PRN (15:18)
[2017-10-28 16:00] VITALS: BP 148/65
--- NOTE | 2017-10-28 18:32 | NUR ---
MS RN CLOSING NOTES PT REMAINS IN STABLE CONDITION. ALL NEEDS WERE MET DURING SHIFT AND ORDERS CARRIED OUT ACCORDINGLY. ALL DUE MEDS GIVEN. PT WAS REPOSITIONED AND TURNED Q2HRSD PER PROTOCOL. WOUND AND SKIN CARE RENDERED ORDERED. IV REMAINS PATENT AND INTACT. DISCHARGE CANCELLED AT THIS TIME DR. LESTER NOW PREFERS THE PT TO STAY UNTIL FRIDAY FOR A SCHEDULED SURGICAL DEBRIDEMENT WITH DR. FELIZ. SAFETY MEASURES REMAIN IN PLACE. WILL ENDORSE TO NIGHTSHIFT NURSE FOR GABRIELA
--- NOTE | 2017-10-28 19:30 | NUR ---
RN OPENING NOTES PATIENT IS SLEEPING IN BED, EASY TO AROUSE, ALERT AND ORIENTED X3. VS STABLE. NO PAIN OR DISCOMFORT NOTED AT THIS TIME. RESPIRATIONS EVEN AND UNLABORED. NO SOB NOTED. IV ACCESS ON LEFT FA 20 G PATENT AND INTACT, NO REDNESS OR INFILTRATION NOTED. F/ CIS IN PLACE, DRAINING CLEAR AND YELLOW URINE. BED IN LOW AND LOCKED POSITION. SIDE ARILS X2. CALL LIGHT WITHIN EASY REACH. WILL CONTINUE TO MONITOR AND ASSESS DURING THE SHIFT.
[2017-10-28 20:00] VITALS: BP 149/59
[2017-10-28] MEDS: ENOXAPARIN SODIUM 30 MG/0.3 ML DISP.SYRIN SQ SCH (21:04)
[2017-10-28] MEDS: ATORVASTATIN 10 MG TABLET PO SCH (21:06)
[2017-10-28] MEDS: TERAZOSIN HCL 1 MG CAPSULE PO SCH (21:06)
[2017-10-28] MEDS: ZOLPIDEM TARTRATE 5 MG TABLET PO PRN (22:26)
[2017-10-29] MEDS: PIPERACILLIN /TAZOBACTAM 2.25 G in IV D5W 50 ML IV SCH ×3 (06:13→18:00)
--- NOTE | 2017-10-29 06:49 | NUR ---
RN CLOSING NOTES PATIENT IS SLEEPING IN BED, EASY TO AROUSE, ALERT AND ORIENTED X3. VS STABLE. NO PAIN OR DISCOMFORT NOTED AT THIS TIME. RESPIRATIONS EVEN AND UNLABORED. NO SOB NOTED. IV ACCESS ON LEFT FA 20 G PATENT AND INTACT, NO REDNESS OR INFILTRATION NOTED. F/ C IS IN PLACE, DRAINING CLEAR AND YELLOW URINE. ALL NEEDS ARE MET AND MEDICATIONS GIVEN PER MD ORDER. BED IN LOW AND LOCKED POSITION. SIDE ARILS X2. CALL LIGHT WITHIN EASY REACH. WILL ENDORSE TO RN DAY SHIFT FOR GABRIELA.
[2017-10-29 08:00] VITALS: BP 164/77
--- NOTE | 2017-10-29 08:00 | NUR ---
ms rn received on bed, awake,alert,oriented x3,not in any form of distress, respirations even and unlabored,no sob noted, lungs are clear,abdomen soft, positive bowel sounds, denies pain at this time,all needs attended.
[2017-10-29] MEDS: CHLORTHALIDONE 25 MG PO SCH (09:00)
[2017-10-29] MEDS: DULOXETINE HCL 30 MG CAPSULE.DR PO SCH (09:23)
[2017-10-29] MEDS: PREGABALIN 100 MG CAPSULE PO SCH ×2 (09:24→16:35)
[2017-10-29] MEDS: SENNOSIDES 8.6 MG TABLET PO SCH ×2 (09:24→16:35)
[2017-10-29] MEDS: ASCORBIC ACID 500 MG TABLET PO SCH (09:24)
[2017-10-29] MEDS: LINAGLIPTIN 5 MG TABLET PO SCH (09:24)
[2017-10-29] MEDS: DOCUSATE SODIUM 250 MG CAPSULE PO SCH ×2 (09:24→16:35)
[2017-10-29] MEDS: AMLODIPINE BESYLATE 5 MG TABLET PO SCH (09:25)
[2017-10-29] MEDS: METFORMIN 500 MG TABLET PO SCH ×2 (09:25→16:35)
[2017-10-29] MEDS: hydrALAZINE HCL 10 MG TABLET PO SCH ×2 (09:26→16:38)
[2017-10-29] MEDS: CARVEDILOL 6.25 MG TABLET PO SCH ×2 (09:26→16:37)
[2017-10-29] MEDS: VIT B CMPLX 3/FA/VIT C/BIOTIN 1 TAB TABLET PO SCH (09:26)
[2017-10-29] MEDS: LISINOPRIL (20MG) 20 MG TABLET PO SCH ×2 (09:26→16:37)
[2017-10-29] MEDS: PROSOURCE / PROSTAT (PYXIS) 30 ML UDC PO SCH (09:30)
--- NOTE | 2017-10-29 09:30 | NUR ---
ms rn breakfast served,due meds given, tolerated well.all needs attended.
--- NOTE | 2017-10-29 13:30 | NUR ---
ms rn was seen by kike antony,no new orders at this time.
[2017-10-29 16:05] VITALS: BP 159/59
[2017-10-29] MEDS: SOD FERRIC GLUC 125 MG in IV NS 0.9% 100 ML IV SCH (16:34)
--- NOTE | 2017-10-29 17:07 | NUR ---
ms rn on bed, no change of condition.
[2017-10-29] MEDS: ONDANSETRON HCL/PF 4 MG/2 ML VIAL IVP PRN (17:56)
--- NOTE | 2017-10-29 18:35 | NUR ---
ms rn on bed, no distress noted,all needs attended.
[2017-10-29] MEDS: oxyCODONE/APAP (5/325 MG) 1 UDTAB TABLET PO PRN (19:02)
--- NOTE | 2017-10-29 19:30 | NUR ---
RN NOTES RECEIVED PATIENT IN BED AWAKE, AO X 3, ABLE TO MAKE NEEDS KNOWN. NO ACUTE DISTRESS NOTED. DENIES ANY PAIN AT THIS TIME. IV SITE PATENT, INTACT; FLUSHED. RUSSO CATH PATENT, INTACT; DRAINING CLEAR YELLOW URINE. SAFETY REMINDERS GIVEN. ON LOW BED WITH BILATERAL UPPER SIDE RAILS UP. CALL CARTER WITHIN EASY REACH. WILL CONTINUE TO MONITOR.
[2017-10-29 20:00] VITALS: BP 147/49
[2017-10-29] MEDS: ENOXAPARIN SODIUM 30 MG/0.3 ML DISP.SYRIN SQ SCH (21:00)
[2017-10-29] MEDS: ATORVASTATIN 10 MG TABLET PO SCH (22:33)
[2017-10-29] MEDS: ZOLPIDEM TARTRATE 5 MG TABLET PO PRN (22:33)
[2017-10-29] MEDS: TERAZOSIN HCL 1 MG CAPSULE PO SCH (22:34)
[2017-10-30] MEDS: PIPERACILLIN /TAZOBACTAM 2.25 G in IV D5W 50 ML IV SCH ×6 (06:13→23:01)
--- NOTE | 2017-10-30 06:41 | NUR ---
RN NOTES PATIENT ASLEEP, EASILY AROUSABLE. RESPIRATIONS EVEN. NO SIGNS OF PAIN NOTED. NPO SINCE MIDNIGHT. DUE MEDS GIVEN WITH NO ASE NOTED. KEPT CLEAN, DRY, AND COMFORTABLE. NEEDS ATTENDED. SAFETY PRECAUTIONS AND COMFORT MEASURES IN PLACE. WILL GIVE REPORT TO DAY SHIFT FOR CONTINUITY OF CARE.
--- NOTE | 2017-10-30 07:46 | NUR ---
RN OPENING NOTES RECEIVED PT. PT IS STABLE AND SLEEPING IN BED. NO S/S OF RESP DISTRESS OR SOB. PT DOES NOT APPEAR TO BE IN PAIN AT THIS TIME. IV ACCESS LOCATED ON RIGHT FA 20G CURRENTLY INFUSING NS AT [facility]. FC IN PLACE AND PATENT. PT IS SCHEDULED FOR SACRAL WOUND DEBRIDEMENT AND A FOLLOWING WOUND VAC PLACEMENT. CONSENT COMPLETED AND PLACED IN CHART. SAFETY MEASURES IN PLACE, CALL LIGHT WITHIN REACH. WILL CONTINUE TO MONITOR.
[2017-10-30 08:00] VITALS: BP 140/61
[2017-10-30] MEDS: DOCUSATE SODIUM 250 MG CAPSULE PO SCH ×2 (09:00→16:57)
[2017-10-30] MEDS: LINAGLIPTIN 5 MG TABLET PO SCH (09:00)
[2017-10-30] MEDS: CHLORTHALIDONE 25 MG PO SCH (09:00)
[2017-10-30] MEDS: PREGABALIN 100 MG CAPSULE PO SCH ×2 (09:00→16:56)
[2017-10-30] MEDS: ASCORBIC ACID 500 MG TABLET PO SCH (09:00)
[2017-10-30] MEDS: METFORMIN 500 MG TABLET PO SCH ×2 (09:00→16:57)
[2017-10-30] MEDS: DULOXETINE HCL 30 MG CAPSULE.DR PO SCH (09:00)
[2017-10-30] MEDS: LISINOPRIL (20MG) 20 MG TABLET PO SCH ×2 (09:00→16:57)
[2017-10-30] MEDS: hydrALAZINE HCL 10 MG TABLET PO SCH ×2 (09:00→16:58)
[2017-10-30] MEDS: PROSOURCE / PROSTAT (PYXIS) 30 ML UDC PO SCH (09:00)
[2017-10-30] MEDS: AMLODIPINE BESYLATE 5 MG TABLET PO SCH (09:00)
[2017-10-30] MEDS: VIT B CMPLX 3/FA/VIT C/BIOTIN 1 TAB TABLET PO SCH (09:00)
[2017-10-30] MEDS: CARVEDILOL 6.25 MG TABLET PO SCH ×2 (09:00→16:57)
[2017-10-30] MEDS: SENNOSIDES 8.6 MG TABLET PO SCH ×2 (09:00→16:57)
[2017-10-30] MEDS ORDERED: SILVER NITRATE APPLICATOR 1 EA BOX TP ONE (09:30)
[2017-10-30] MEDS: oxyCODONE/APAP (5/325 MG) 1 UDTAB TABLET PO PRN ×3 (10:55→23:21)
[2017-10-30] MEDS: SOD FERRIC GLUC 125 MG in IV NS 0.9% 100 ML IV SCH (14:40)
[2017-10-30 16:00] VITALS: BP 160/58
--- NOTE | 2017-10-30 18:28 | NUR ---
RN CLOSING NOTES PT IN BED RESTING. NO S/S OF RESP DISTRESS OR SOB. NO C/O PAIN AT THIS TIME. PT EVAL PERFORMED TODAY. PT IS S/P DEBRIDEMENT OF SACRAL WOUNDS IN AM OF 10/30/17. ALL PT NEEDS ANTICIPATED AND MET. SAFETY MEASURES IN PLACE, CALL LIGHT WITHIN REACH. WILL ENDORSE TO DISPATCHER CHIEF COAL SLURRY FOR GABRILEA.
--- NOTE | 2017-10-30 19:34 | NUR ---
MS GOLDSMITH OPENING NOTES: RECEIVED PT IN BED AND IS A/O X4. PT ON ROOM AIR AND TOLERATING WELL. PT HAS RUSSO CATH AND IS ATTACHED TO DRAINAGE BAG WITH YELLOW URINE DRAINING. PT HAS IV ON R FOREARM #20G AND IS PATENT AND INTACT. CURRENTLY S/L. CALL LIGHT WITHIN PT'S REACH. BED KEPT IN LOW, LOCKED POSITION, AND SIDE RAILS X 2UP. WILL CONTINUE TO MONITOR PT. Addendum: 10/30/17 at 2121 by MAGNUS HODGES RN wound vac noted ; no leakage noted
[2017-10-30 20:00] VITALS: BP 149/63
[2017-10-30] MEDS: ENOXAPARIN SODIUM 30 MG/0.3 ML DISP.SYRIN SQ SCH (20:23)
[2017-10-30] MEDS: ATORVASTATIN 10 MG TABLET PO SCH (21:00)
[2017-10-30] MEDS: ZOLPIDEM TARTRATE 5 MG TABLET PO PRN (21:01)
[2017-10-30] MEDS: TERAZOSIN HCL 1 MG CAPSULE PO SCH (21:01)
--- NOTE | 2017-10-30 21:05 | NUR ---
MS RN NOTES: PT REQUESTED FOR HER AMBIEN 5MG WITH HER EVENING MEDICATIONS. PT WAS ADMINISTERED AMBIEN 5MG PO. WILL CONTINUE TO MONITOR PT.
--- NOTE | 2017-10-30 23:26 | NUR ---
MS RN NOTES: PT COMPLAINING OF 9/10 SACRAL AREA PAIN. PT WAS ADMINISTERED PERCOCET. WILL CONTINUE TO MONITOR PT.
--- NOTE | 2017-10-30 23:59 | NUR ---
MS RN NOTES: SPOKE WITH DR. MICHEL. INFORMED HIM THAT PT IS REQUESTING FOR COUGH MEDICATION SHE IS COUGHING. GOT ORDER FOR ROBITUSSIN Q6HR PRN COUGH.
[2017-10-31] MEDS ORDERED: GUAIFENESIN 300 MG/15 ML UDC PO PRN
[2017-10-31] MEDS: PIPERACILLIN /TAZOBACTAM 2.25 G in IV D5W 50 ML IV SCH ×2 (05:02→11:40)
--- NOTE | 2017-10-31 06:35 | NUR ---
MS RN CLOSING NOTES: ALL NEEDS WERE ATTENDED AND ANTICIPATED FOR. PT ON ROOM AIR AND TOLERATING WELL. PT HAS WOUND VAC PLACED AND SEAL IS ON SACRAL AREA. NO LEAKAGE NOTED. OUTPUT WAS 10ML. PT HAS IV ON R FOREARM #20G AND IS CURRENTLY S/L. PT ALSO HAS RUSSO CATH AND IS ATTACHED TO DRAINAGE BAG WITH YELLOW URINE DRAINING. OUTPUT WAS 1750ML. CALL LIGHT WITHIN PT'S REACH. BED KEPT IN LOW, LOCKED POSITION, AND SIDE RAILS X 2UP. WILL ENDORSE TO AM NURSE FOR GABRIELA.
--- NOTE | 2017-10-31 07:27 | NUR ---
RN OPENING NOTES RECEIVED PT. PT IS STABLE AND RESTING IN BED. A/OX3. NO S/S OF RESP DISTRESS OR SOB, HOWEVER PT HAS HAD A NON-PRODUCTIVE COUGH, O2 SAT REMAINS WNL AND PRN EXPECTORANT ORDERED.IV ACCESS LOCATED ON RIGHT FA 20G CURRENTLY INFUSING NS AT O. SAFETY MEASURES IN PLACE, CALL LIGHT WITHIN REACH, WILL CONTINUE TO MONITOR.
[2017-10-31 08:29] VITALS: BP 168/76
[2017-10-31] MEDS: AMLODIPINE BESYLATE 5 MG TABLET PO SCH (09:00)
[2017-10-31] MEDS: CHLORTHALIDONE 25 MG PO SCH (09:00)
[2017-10-31] MEDS: SENNOSIDES 8.6 MG TABLET PO SCH (09:00)
[2017-10-31] MEDS: ASCORBIC ACID 500 MG TABLET PO SCH (09:02)
[2017-10-31] MEDS: PREGABALIN 100 MG CAPSULE PO SCH (09:02)
[2017-10-31] MEDS: LISINOPRIL (20MG) 20 MG TABLET PO SCH (09:03)
[2017-10-31] MEDS: DULOXETINE HCL 30 MG CAPSULE.DR PO SCH (09:03)
[2017-10-31] MEDS: hydrALAZINE HCL 10 MG TABLET PO SCH (09:03)
[2017-10-31 09:04] VITALS: BP 168/76
[2017-10-31] MEDS: VIT B CMPLX 3/FA/VIT C/BIOTIN 1 TAB TABLET PO SCH (09:04)
[2017-10-31] MEDS: DOCUSATE SODIUM 250 MG CAPSULE PO SCH (09:04)
[2017-10-31] MEDS: METFORMIN 500 MG TABLET PO SCH (09:04)
[2017-10-31] MEDS: LINAGLIPTIN 5 MG TABLET PO SCH (09:04)
[2017-10-31] MEDS: CARVEDILOL 6.25 MG TABLET PO SCH (09:04)
[2017-10-31] MEDS: PROSOURCE / PROSTAT (PYXIS) 30 ML UDC PO SCH (09:06)
[2017-10-31] MEDS: oxyCODONE/APAP (5/325 MG) 1 UDTAB TABLET PO PRN (11:42)
[2017-10-31] MEDS: SOD FERRIC GLUC 125 MG in IV NS 0.9% 100 ML IV SCH (13:54)
--- NOTE | 2017-10-31 17:00 | NUR ---
DISCHARGE NOTE PT DISCHARGED TO [facility]. A/OX3, VSS, NO S/S OF RESP DISTRESS OR SOB, HOWEVER NON-PRODUCTIVE COUGH REMAINS. PT UNABLE TO SIGN DISCHARGE INSTRUCTIONS AND BELONGINGS LIST, LICENSED STAFF WITNESSED THE COLLECTION OF BELONGINGS AND THE RECEIPT OF [employer] AND D/C INSTRUCTIONS BY PARAMEDICS. PT EDUCATION PROVIDED REGARDING DX, CONTINUED TREATMENT AND CONTINUED MEDICATIONS. PT VERBALIZED UNDERSTANDING. IV ACCESS AND ID BAND REMOVED. FC REMAINED IN PLACE PER SNF REQUEST. REPORT GIVEN TO RUPAL ELIZABETH OF [facility]. WOUND VAC REMOVED, HOWEVER PT C/O PAIN WHEN ATTEMPTING TO REMOVE PACKING. REFUSED REMOVAL OF SAID PACKING. PHOTOS TAKEN OF PERINEAL REDNESS, HOWEVER PT UNABLE TO TOLERATE PAIN OF REPOSITIONING AND REFUSED FURTHER PICTURES OF SACRUM. PT LEFT IN AMBULANCE WITH [facility].
== END 2017-10-31 16:26 | DRG 981 ==
LOC: ER 14:12 → TELE 17:50 → MED 10-25 08:46
PROVIDERS: ADMIT Internal Medicine; ATTEND Internal Medicine
PROC: 0KBP0ZZ Excision of Left Hip Muscle, Open Approach (ICD-10-PCS; principal; 2017-10-30)
PROC: 0KBN0ZZ Excision of Right Hip Muscle, Open Approach (ICD-10-PCS; 2017-10-30)
DX: J15.6 Pneumonia due to other Gram-negative bacteria (principal); N17.0 Acute kidney failure with tubular necrosis; J96.01 Acute respiratory failure with hypoxia; G92 Toxic encephalopathy; L89.154 Pressure ulcer of sacral region, stage 4; E87.2 Acidosis; E11.22 Type 2 diabetes mellitus with diabetic chronic kidney disease; E11.51 Type 2 diabetes mellitus with diabetic peripheral angiopathy without gangrene; I13.0 Hypertensive heart and chronic kidney disease with heart failure and stage 1 through stage 4 chronic kidney disease, or unspecified chronic kidney disease; N39.0 Urinary tract infection, site not specified; E87.5 Hyperkalemia; I50.9 Heart failure, unspecified; D63.8 Anemia in other chronic diseases classified elsewhere; N18.9 Chronic kidney disease, unspecified; E78.5 Hyperlipidemia, unspecified; I25.10 Atherosclerotic heart disease of native coronary artery without angina pectoris; K21.9 Gastro-esophageal reflux disease without esophagitis; J44.9 Chronic obstructive pulmonary disease, unspecified; I70.0 Atherosclerosis of aorta; I67.2 Cerebral atherosclerosis; F17.200 Nicotine dependence, unspecified, uncomplicated; Z89.511 Acquired absence of right leg below knee; Z79.82 Long term (current) use of aspirin; Z79.4 Long term (current) use of insulin; Z79.899 Other long term (current) drug therapy; F32.9 Major depressive disorder, single episode, unspecified; Z88.1 Allergy status to other antibiotic agents; Z79.84 Long term (current) use of oral hypoglycemic drugs
CPT/HCPCS: 36415; 36600; 70450-TC; 71045-TC; 72193-TC; 80048-TC; 80053-TC; 80061-TC; 80076-TC; 81000-TC; 82272-TC; 82306; 82728-TC; 82962-TC; 83540-TC; 83605-TC; 83735-TC; 83880; 84100-TC; 84439-TC; 84443-TC; 84484-TC; 85025-TC; 85730-TC; 87040-TC; 87081-TC; 87086-TC; 87186-TC; 87400; 93307-TC; 94799-TC; A4216; A4606; A6402; J0360; J1650; J1940; J2405; J2543; J2916; J3475; J3490; J7030; J7060; Z7610

== ENCOUNTER 2018-04-20 12:53 | Outpatient (CLI) | payer MEDICARE, OTHER ==
[~2018-04-20 12:53] MED LIST changes: +ACET-868 PO; -ALBU8.5H8 IH; +AMIN30LI4 PO; +ASCO500T9 PO; -ASPI-1152 PO; +BISA10SU8 RC; -BLOO-129 IN; +CHLO25TA2 PO; +CLON0.3P TD; -DIPH25TA27 PO; -DOCU-141 PO; +DOCU250C14 PO; -DOXY100C2 PO; +DULO60CA45 PO; -FAMO20TA8 PO; -FLUT16SP BNOSTRILS; +FOLI0.8T2 PO; -GABA600T2 PO; -GUAI480S10 PO; -HYDR-3980 PO; +HYDR-4075 PO; -HYPR15DR9 EACHEYE; -INSU100I14 SQ; -INSU100V7 SQ; +LISI-603 PO; -LISI30TA4 PO; -LOPE2TAB25 PO; -LORA10TA7 PO; -LORA1TAB PO; +MAGN400O6 PO; -MECL-102 PO; -MELO-107 PO; +METF500T6 PO; -MORP15TA60 PO; +NA P133E RC; +OXYC-128 PO; +OXYC-133 PO; -PARO40TA4 PO; +PREG300C PO; -PRIM50TA PO; -PROC5TAB59 PO; +SITA100T PO; +SODIUM POLYSTYRENE SULFONATE 15 G/60 ML BOTTLE ONE; +TERA2CAP4 PO
== END 2018-04-20 23:59 ==
LOC: WOU 12:53
PROVIDERS: ATTEND Surgery
DX: L89.154 Pressure ulcer of sacral region, stage 4 (principal); E10.9 Type 1 diabetes mellitus without complications; D64.9 Anemia, unspecified; K21.9 Gastro-esophageal reflux disease without esophagitis; R26.2 Difficulty in walking, not elsewhere classified; M62.50 Muscle wasting and atrophy, not elsewhere classified, unspecified site; Z72.0 Tobacco use; Z99.3 Dependence on wheelchair
CPT/HCPCS: 11042; A6402; Z7610

== ENCOUNTER 2018-12-31 10:30 | Outpatient (CLI) | payer MEDICARE, OTHER ==
[~2018-12-31 10:30] MED LIST changes: -AMLO5TAB2 PO; +AMLO5TAB9 PO; +METF-440 PO; -METF500T6 PO; -SENN-167 PO; +SENN-168 PO; -SODIUM POLYSTYRENE SULFONATE 15 G/60 ML BOTTLE ONE
== END 2018-12-31 23:59 | disposition home health service (06) ==
LOC: WOU 10:30
PROVIDERS: ATTEND Podiatrist Foot & Ankle Surgery
DX: E11.621 Type 2 diabetes mellitus with foot ulcer (principal); L97.523 Non-pressure chronic ulcer of other part of left foot with necrosis of muscle; E11.42 Type 2 diabetes mellitus with diabetic polyneuropathy; E11.51 Type 2 diabetes mellitus with diabetic peripheral angiopathy without gangrene; Z89.511 Acquired absence of right leg below knee; Z99.3 Dependence on wheelchair; F17.200 Nicotine dependence, unspecified, uncomplicated
CPT/HCPCS: 11043; 82962; A6402